=== PATIENT | male | born 1990 | race African-American/Black ===

== ENCOUNTER 2021-03-10 22:52 | Emergency (ER) | payer OTHER ==
[2021-03-10] MEDS ORDERED: Ketorolac Tromethamine 30 MG/ML VIAL ONE (23:29)
[2021-03-10] MEDS ORDERED: Orphenadrine Citrate 60 MG/2 ML VIAL IM SCH (23:30)
== END 2021-03-11 00:01 | disposition home or self-care (01) ==
LOC: CSHERS 22:52
DX: M25.511 Pain in right shoulder (principal); I10 Essential (primary) hypertension
CPT/HCPCS: 96372; 99283; J1885; J2360

== ENCOUNTER 2021-07-20 00:25 | Emergency (ER) | payer MEDICAID, OTHER ==
[2021-07-20] MEDS ORDERED: Dexamethasone 10 MG/ML VIAL ONE (01:13)
[2021-07-20] MEDS ORDERED: Ibuprofen 200 MG TAB ONE (01:14)
[2021-07-20] MEDS ORDERED: Oxymetazoline HCl 0.05% ( 15 ML ) ONE (01:14)
[2021-07-20] MEDS ORDERED: Acetaminophen 500 MG TAB ONE (01:15)
== END 2021-07-20 01:44 | disposition home or self-care (01) ==
LOC: CSHERS 00:25
DX: H69.93 Unspecified Eustachian tube disorder, bilateral (principal); I10 Essential (primary) hypertension; F17.210 Nicotine dependence, cigarettes, uncomplicated
CPT/HCPCS: 99282; J1100

== ENCOUNTER 2022-03-13 23:16 | Inpatient (IN) | payer OTHER ==
[2022-03-13 23:55] LABS: #Basophils 0.1 10x3/uL (0.0-0.2); #Eosinphils 0.1 10x3/uL (0.0-0.5); #Monocytes 0.4 10x3/uL (0.0-1.1); #Neutrophils 4.2 10x3/uL (1.5-8.4); %Basophils 1.2 % (0.0-2.0); %Eosinophils 1.6 % (0.0-6.0); %Lymphocytes 31.8 % (18.0-47.0); %Monocytes 5.5 % (0.0-10.0); %Neutrophils 59.8 % (40.0-75.0); Hemoglobin 14.6 g/dL (13.5-17.5); Mean Corpuscular HGB CONC 33.2 g/dL (32.0-36.0); Mean Corpuscular Hemoglobin 25.7 pg (27.0-33.0); Mean Corpuscular Volume 77.5 fl (81.2-95.1); Platelet Count 329 10x3/uL (150-450); RBC Distribution Width 14.4 % (11.5-14.5); Red Blood Cell (RBC) Count 5.68 10x6/uL (4.32-5.72)
[2022-03-14 00:04] LABS: ALT (SGPT) 21 U/L (8-55); AST (SGOT) 17 U/L (5-34); Albumin 4.3 g/dL (3.5-5.0); Alkaline Phosphatase 78 U/L (40-110); Anion Gap 15 mmol/L (10-20); BUN (Urea Nitrogen) 12 mg/dL (8.9-20.6); Bilirubin, Total 0.6 mg/dL (0.2-1.2); Calc. Creatinine Clearance 0 mL/min (70-130); Calcium 9.3 mg/dL (7.8-10.44); Carbon Dioxide 22 mmol/L (22-29); Chloride 106 mmol/L (98-107); Estimated GFR 62; Globulin 3.3 g/dL (2.4-3.5); Glucose 113 mg/dL (70-105); Potassium 3.7 mmol/L (3.5-5.1); Protein, Total 7.6 g/dL (6.0-8.3); Sodium 139 mmol/L (136-145)
[2022-03-14] MEDS ORDERED: Aspirin Chewable 81 MG TAB ONE (00:17)
[2022-03-14] MEDS ORDERED: Nitroglycerin 2% Ointment 1 INCH/1 GM Packet ONE (00:18)
[2022-03-14] MEDS ORDERED: hydrALAZINE 20 MG/ML VIAL ONE ×2 (00:18→00:34)
[2022-03-14 00:22] LABS: CKMB 2.7 ng/mL (0-6.6)
[2022-03-14] MEDS ORDERED: Calcium Carbonate 500 MG ChewTAB PO PRN (01:19)
[2022-03-14] MEDS ORDERED: Guaifenesin DM 100-10/5 ML UDCUP PO PRN (01:19)
[2022-03-14] MEDS ORDERED: Ondansetron PF 4 MG/2 ML Vial IVP PRN (01:19)
[2022-03-14] MEDS ORDERED: Zolpidem Tartrate 5 MG TAB PO PRN (01:19)
[2022-03-14] MEDS ORDERED: Acetaminophen 325 MG TAB PO PRN (01:19)
[2022-03-14] MEDS ORDERED: Senokot S 8.6-50 MG TAB PO PRN (01:19)
[2022-03-14] MEDS ORDERED: Labetalol HCl 100 MG/20 ML VIAL SLOW IVP PRN (01:21)
[2022-03-14] MEDS ORDERED: Nitroglycerin 0.4 MG TAB (25 Tab Bottle) SL PRN (01:23)
[2022-03-14] MEDS ORDERED: Labetalol HCl 200 MG TAB PO SCH (01:30)
[2022-03-14 01:50] VITALS: BMI 35.4
[2022-03-14] MEDS ORDERED: Lorazepam 2 MG/ML VIAL ONE ×2 (01:57→03:30)
[2022-03-14] MEDS ORDERED: Lorazepam 2 MG/ML VIAL SLOW IVP SCH (02:00)
[2022-03-14] MEDS ORDERED: Labetalol HCl 100 MG/20 ML VIAL SLOW IVP SCH (02:00)
[2022-03-14] MEDS ORDERED: Labetalol HCl 100 MG/20 ML VIAL ONE (02:00)
[2022-03-14 03:03] LABS: Bilirubin Neg (Negative); Blood, Urine 10 (Negative); Clarity Slightly Cloudy (Clear); Glucose, Urine (Dipstick) 50 mg/dL (Negative); Ketone, Urine Negative (Negative); Leukocyte 500 (Negative); Nitrite Negative (Negative); Protein, Urine (Dipstick) 30 mg/dl (Neg-Trace); Urobilinogen Normal mg/dL (Less than 2)
[2022-03-14 03:15] LABS: Amphetamine Not Detected (NotDetected); Barbiturates Screen Not Detected (NotDetected); Benzodiazepine Screen Not Detected (NotDetected); Cocaine Metabolite Screen Not Detected (NotDetected); Methadone Not Detected (NotDetected); Methamphetamine Not Detected (NotDetected); Opiate Screen Not Detected (NotDetected); Oxycodone Screen Not Detected (NotDetected); Phencyclidine (PCP) Not Detected (NotDetected); THC/Cannabinoid Screen Not Detected (NotDetected); Tricyclic Screen Not Detected (NotDetected)
[2022-03-14 03:16] LABS: Bacteria/HPF Rare-Few HPF (None Seen); RBC/HPF 0-3 HPF (0-3); Squamous Epithelial 0-3 HPF (0-3); Transitional Epithelial 0-3 HPF (None Seen); WBC/HPF 21-50 HPF (0-3)
[2022-03-14 03:18] LABS: Trichomonas/HPF Rare HPF (None Seen)
[2022-03-14 04:15] LABS: Anion Gap 17 mmol/L (10-20); BUN (Urea Nitrogen) 10 mg/dL (8.9-20.6); Calc. Creatinine Clearance 137 mL/min (70-130); Carbon Dioxide 20 mmol/L (22-29); Cardiac Risk 4.6 (Less than 4.5); Chloride 104 mmol/L (98-107); Cholesterol 196 mg/dl (< 200 Desired); Estimated GFR 72; Glucose 128 mg/dL (70-105); HDL Cholesterol 43 mg/dL (>60 Neg Risk); LDL Cholesterol, Calculated 126 mg/dL; Potassium 3.6 mmol/L (3.5-5.1); Sodium 137 mmol/L (136-145); Triglycerides 136 mg/dL (Less than 150)
[2022-03-14 04:37] LABS: CKMB 2.5 ng/mL (0-6.6)
[2022-03-14] MEDS ORDERED: NIFEdipine XL 30 MG TAB ONE (06:11)
[2022-03-14] MEDS: NIFEdipine XL 60 MG TAB PO SCH (06:16)
[2022-03-14] MEDS ORDERED: Carvedilol 6.25 MG TAB PO SCH ×2 (08:00→14:00)
[2022-03-14 08:38] LABS: CKMB 1.8 ng/mL (0-6.6)
[2022-03-14] MEDS ORDERED: Carvedilol 12.5 MG TAB ONE ×2 (09:11→18:30)
[2022-03-14] MEDS: Hydrochlorothiazide 25 MG TAB PO SCH (10:30)
[2022-03-14] MEDS: Carvedilol 12.5 MG TAB PO SCH (18:34)
[2022-03-15 05:01] LABS: Anion Gap 11 mmol/L (10-20); BUN (Urea Nitrogen) 15 mg/dL (8.9-20.6); Calc. Creatinine Clearance 130 mL/min (70-130); Calcium 9.5 mg/dL (7.8-10.44); Carbon Dioxide 23 mmol/L (22-29); Chloride 104 mmol/L (98-107); Estimated GFR 67; Glucose 101 mg/dL (70-105); Potassium 3.4 mmol/L (3.5-5.1); Sodium 135 mmol/L (136-145)
[2022-03-15 05:07] LABS: #Basophils 0.1 10x3/uL (0.0-0.2); #Eosinphils 0.1 10x3/uL (0.0-0.5); #Monocytes 0.6 10x3/uL (0.0-1.1); #Neutrophils 4.1 10x3/uL (1.5-8.4); %Basophils 0.8 % (0.0-2.0); %Eosinophils 0.9 % (0.0-6.0); %Lymphocytes 27.5 % (18.0-47.0); %Neutrophils 61.5 % (40.0-75.0); Hemoglobin 13.7 g/dL (13.5-17.5); Mean Corpuscular HGB CONC 32.4 g/dL (32.0-36.0); Mean Corpuscular Hemoglobin 25.4 pg (27.0-33.0); Mean Corpuscular Volume 78.3 fl (81.2-95.1); Mean Platelet Volume 9.9 fl (7.4-10.4); Platelet Count 347 10x3/uL (150-450); RBC Distribution Width 14.6 % (11.5-14.5); White Blood Cell (WBC) Count 6.6 10x3/uL (3.5-10.5)
[2022-03-15] MEDS: NIFEdipine XL 60 MG TAB PO SCH (06:11)
[2022-03-15] MEDS: Hydrochlorothiazide 25 MG TAB PO SCH (06:12)
[2022-03-15] MEDS: Carvedilol 12.5 MG TAB PO SCH ×2 (06:12→18:44)
[2022-03-15] MEDS ORDERED: Lidocaine 1% (PF) 30 ML VIAL ONE (08:28)
[2022-03-15] MEDS ORDERED: FLU VACC QS2022-23(6MOS UP)/PF 60 MCG/0.5 ML SYRINGE IM ONE (09:00)
[2022-03-15] MEDS ORDERED: Iopamidol 300 61% 100 ML VIAL FS ONE (09:10)
[2022-03-15] MEDS ORDERED: Potassium Chloride 20 MEQ TAB PO SCH (09:15)
[2022-03-15] MEDS ORDERED: Fentanyl 100 MCG/2 ML VIAL ONE (10:29)
[2022-03-15] MEDS ORDERED: Midazolam HCl 2 mg/2 ml Vial ONE (10:30)
[2022-03-15] MEDS ORDERED: Acetaminophen/Codeine 30-300mg Tablet PO PRN (14:41)
[2022-03-15] MEDS: Losartan Potassium 50 MG TAB PO SCH (16:52)
[2022-03-16 04:25] LABS: #Basophils 0.1 10x3/uL (0.0-0.2); #Eosinphils 0.1 10x3/uL (0.0-0.5); #Monocytes 0.7 10x3/uL (0.0-1.1); #Neutrophils 5.8 10x3/uL (1.5-8.4); %Basophils 0.7 % (0.0-2.0); %Lymphocytes 19.2 % (18.0-47.0); %Monocytes 8.6 % (0.0-10.0); %Neutrophils 70.3 % (40.0-75.0); Hemoglobin 13.6 g/dL (13.5-17.5); Mean Corpuscular HGB CONC 32.2 g/dL (32.0-36.0); Mean Corpuscular Hemoglobin 25.5 pg (27.0-33.0); Mean Corpuscular Volume 79.2 fl (81.2-95.1); Mean Platelet Volume 9.8 fl (7.4-10.4); Platelet Count 330 10x3/uL (150-450); RBC Distribution Width 14.5 % (11.5-14.5); Red Blood Cell (RBC) Count 5.33 10x6/uL (4.32-5.72); White Blood Cell (WBC) Count 8.3 10x3/uL (3.5-10.5)
[2022-03-16 04:37] LABS: Anion Gap 13 mmol/L (10-20); BUN (Urea Nitrogen) 23 mg/dL (8.9-20.6); Calc. Creatinine Clearance 105 mL/min (70-130); Calcium 9.5 mg/dL (7.8-10.44); Carbon Dioxide 24 mmol/L (22-29); Chloride 104 mmol/L (98-107); Estimated GFR 52; Glucose 92 mg/dL (70-105); Magnesium 2.2 mg/dL (1.6-2.6); Potassium 3.8 mmol/L (3.5-5.1); Sodium 137 mmol/L (136-145)
[2022-03-16] MEDS ORDERED: Sodium Chloride 0.9% 1,000 ML IV SCH (08:15)
[2022-03-16] MEDS: NIFEdipine XL 60 MG TAB PO SCH (08:57)
[2022-03-16] MEDS: Sodium Bicarbonate Tab 325 MG TAB PO SCH ×2 (08:57→21:24)
[2022-03-16] MEDS: Carvedilol 12.5 MG TAB PO SCH ×2 (08:57→17:57)
[2022-03-16] MEDS: Losartan Potassium 50 MG TAB PO SCH (08:57)
[2022-03-16] MEDS ORDERED: Losartan Potassium 50 MG TAB PO SCH (09:00)
[2022-03-17 04:39] LABS: #Basophils 0.1 10x3/uL (0.0-0.2); #Eosinphils 0.1 10x3/uL (0.0-0.5); #Monocytes 0.5 10x3/uL (0.0-1.1); #Neutrophils 3.9 10x3/uL (1.5-8.4); %Basophils 0.8 % (0.0-2.0); %Eosinophils 1.1 % (0.0-6.0); %Lymphocytes 27.1 % (18.0-47.0); %Monocytes 8.6 % (0.0-10.0); %Neutrophils 62.2 % (40.0-75.0); Hemoglobin 13.9 g/dL (13.5-17.5); Mean Corpuscular HGB CONC 32.7 g/dL (32.0-36.0); Mean Corpuscular Hemoglobin 25.9 pg (27.0-33.0); Mean Corpuscular Volume 79.3 fl (81.2-95.1); Mean Platelet Volume 10.3 fl (7.4-10.4); Platelet Count 329 10x3/uL (150-450); RBC Distribution Width 14.3 % (11.5-14.5); Red Blood Cell (RBC) Count 5.36 10x6/uL (4.32-5.72); White Blood Cell (WBC) Count 6.3 10x3/uL (3.5-10.5)
[2022-03-17 04:43] LABS: Anion Gap 12 mmol/L (10-20); BUN (Urea Nitrogen) 23 mg/dL (8.9-20.6); Calc. Creatinine Clearance 123 mL/min (70-130); Calcium 9.5 mg/dL (7.8-10.44); Carbon Dioxide 22 mmol/L (22-29); Chloride 105 mmol/L (98-107); Estimated GFR 63; Glucose 86 mg/dL (70-105); Potassium 4.4 mmol/L (3.5-5.1); Sodium 135 mmol/L (136-145)
[2022-03-17 08:23] VITALS: BP 143/95; TEMP 98.1
[2022-03-17] MEDS: Sodium Bicarbonate Tab 325 MG TAB PO SCH (08:33)
[2022-03-17] MEDS: Losartan Potassium 50 MG TAB PO SCH (08:33)
[2022-03-17] MEDS: NIFEdipine XL 60 MG TAB PO SCH (08:33)
[2022-03-17] MEDS: Carvedilol 12.5 MG TAB PO SCH (08:34)
== END 2022-03-17 11:48 | disposition home or self-care (01) | DRG 280 ==
LOC: CSHERS 23:16 → CSHERHOLD 03-14 01:33 → INTOOBSV 03-14 01:33 → CSHTELE 03-14 22:41 → OBSVTOIN 03-16 08:05
PROVIDERS: ADMIT Student in an Organized Health Care Education/Training Program; ATTEND Internal Medicine
PROC: 4A023N7 Measurement of Cardiac Sampling and Pressure, Left Heart, Percutaneous Approach (ICD-10-PCS; principal; 2022-03-15)
PROC: B2111ZZ Fluoroscopy of Multiple Coronary Arteries using Low Osmolar Contrast (ICD-10-PCS; 2022-03-15)
DX: I13.0 Hypertensive heart and chronic kidney disease with heart failure and stage 1 through stage 4 chronic kidney disease, or unspecified chronic kidney disease (principal); I50.41 Acute combined systolic (congestive) and diastolic (congestive) heart failure; I21.A1 Myocardial infarction type 2; N17.9 Acute kidney failure, unspecified; E87.1 Hypo-osmolality and hyponatremia; E87.20 Acidosis, unspecified; I16.1 Hypertensive emergency; I42.9 Cardiomyopathy, unspecified; Z20.822 Contact with and (suspected) exposure to COVID-19; E87.6 Hypokalemia; E66.9 Obesity, unspecified; I77.810 Thoracic aortic ectasia; F17.210 Nicotine dependence, cigarettes, uncomplicated; G47.30 Sleep apnea, unspecified; Z68.35 Body mass index [BMI] 35.0-35.9, adult; D63.1 Anemia in chronic kidney disease; N18.30 Chronic kidney disease, stage 3 unspecified; Z91.14 Patient's other noncompliance with medication regimen; Z79.899 Other long term (current) drug therapy; Z90.49 Acquired absence of other specified parts of digestive tract; Z82.49 Family history of ischemic heart disease and other diseases of the circulatory system; Z83.3 Family history of diabetes mellitus
CPT/HCPCS: 36415; 71045; 75635; 80048; 80053; 80061; 80306; 81003; 81015; 82553; 83735; 83880; 84484; 85025; 93005; 93010; 93306; 93458; 94760; 96372; 96374; 96375; 96376; 97139; 99152; C1769; G0378; J0360; J1650; J2001; J2060; J2250; J3010; J7050; Q9967

== ENCOUNTER 2022-07-17 18:51 | Emergency (ER) | payer OTHER ==
[2022-07-17 19:35] LABS: #Basophils 0.1 10x3/uL (0.0-0.2); #Eosinphils 0.1 10x3/uL (0.0-0.5); #Monocytes 0.3 10x3/uL (0.0-1.1); #Neutrophils 3.3 10x3/uL (1.5-8.4); %Basophils 1.2 % (0.0-2.0); %Eosinophils 0.9 % (0.0-6.0); %Lymphocytes 34.7 % (18.0-47.0); %Monocytes 5.6 % (0.0-10.0); %Neutrophils 57.4 % (40.0-75.0); Hemoglobin 11.4 g/dL (13.5-17.5); Mean Corpuscular HGB CONC 31.9 g/dL (32.0-36.0); Mean Corpuscular Hemoglobin 23.5 pg (27.0-33.0); Mean Corpuscular Volume 73.5 fl (81.2-95.1); Mean Platelet Volume 9.9 fl (7.4-10.4); Platelet Count 381 10x3/uL (150-450); RBC Distribution Width 13.2 % (11.5-14.5); Red Blood Cell (RBC) Count 4.86 10x6/uL (4.32-5.72); White Blood Cell (WBC) Count 5.7 10x3/uL (3.5-10.5)
[2022-07-17 19:47] LABS: ALT (SGPT) 22 U/L (8-55); AST (SGOT) 17 U/L (5-34); Albumin 4.7 g/dL (3.5-5.0); Alkaline Phosphatase 74 U/L (40-110); Anion Gap 15 mmol/L (10-20); BUN (Urea Nitrogen) 13 mg/dL (8.9-20.6); Bilirubin, Total 0.5 mg/dL (0.2-1.2); Calc. Creatinine Clearance 0 mL/min (70-130); Calcium 9.8 mg/dL (7.8-10.44); Carbon Dioxide 22 mmol/L (22-29); Chloride 104 mmol/L (98-107); Estimated GFR 61; Globulin 3.5 g/dL (2.4-3.5); Glucose 101 mg/dL (70-105); Potassium 3.9 mmol/L (3.5-5.1); Protein, Total 8.2 g/dL (6.0-8.3); Sodium 137 mmol/L (136-145)
== END 2022-07-17 20:31 | disposition home or self-care (01) ==
LOC: CSHERS 18:51
DX: R06.02 Shortness of breath (principal); I11.0 Hypertensive heart disease with heart failure; I50.9 Heart failure, unspecified; E78.5 Hyperlipidemia, unspecified; F17.210 Nicotine dependence, cigarettes, uncomplicated
CPT/HCPCS: 71045; 80053; 83735; 83880; 84484; 85025; 93005

== ENCOUNTER 2022-11-05 10:59 | Emergency (ER) | payer OTHER ==
[2022-11-05 15:06] LABS: SARS-CoV-2 NAA Rapid Test DETECTED (NotDetected)
== END 2022-11-05 15:10 | disposition home or self-care (01) ==
LOC: CSHERS 10:59
DX: U07.1 COVID-19 (principal); I11.0 Hypertensive heart disease with heart failure; I50.9 Heart failure, unspecified; F17.210 Nicotine dependence, cigarettes, uncomplicated
CPT/HCPCS: 71045

== ENCOUNTER 2023-12-23 11:24 | Emergency (ER) | payer OTHER ==
[2023-12-23] MEDS ORDERED: Dexamethasone 10 MG/ML VIAL ONE (13:37)
== END 2023-12-23 14:22 | disposition home or self-care (01) ==
LOC: CSHERS 11:24
DX: J02.9 Acute pharyngitis, unspecified (principal); I11.0 Hypertensive heart disease with heart failure; I50.9 Heart failure, unspecified
CPT/HCPCS: 71046; 87081; 87428; 87430; J1100

== ENCOUNTER 2024-12-09 11:09 | Emergency (ER) | payer MEDICAID, OTHER | END 2024-12-09 14:25 | disposition home or self-care (01) | LOC: CSHERS 11:09 | DX: B34.9 Viral infection, unspecified (principal); I11.0 Hypertensive heart disease with heart failure; I50.9 Heart failure, unspecified; E78.5 Hyperlipidemia, unspecified; F17.290 Nicotine dependence, other tobacco product, uncomplicated; Z79.899 Other long term (current) drug therapy | CPT/HCPCS: 87081; 87428; 87430; 99283 ==